=== PATIENT | male | born 2000 | race Caucasian/White ===

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

== ENCOUNTER 2023-07-19 08:24 | Emergency (ER) | payer SELFPAY ==
[2023-07-19] VITALS (8 sets, daily range): BP systolic 125–156; BP diastolic 79–108; PULSE 66–90; RESP 16–24; TEMP 36.7; O2SAT 93–97; BMI 30.7
[2023-07-19] MEDS: ondansetron 2 mg/ML SDV 2 mL 4 MG IVP (08:52)
--- NOTE | 2023-07-19 08:53 | W.ED.BACK ---
HPI - Back Pain/Injury General: Chief Complaint: Back Pain/Injury Stated Complaint: Back Pain Time Seen by Provider: 07/19/23 08:25 Source: patient Mode of arrival: ambulatory History of Present Illness: 23-year-old male presents emergency room with sudden onset of right flank and back pain. Radiating down into the groin. Patient has a history of autism pain is severe enough to cause him to vomit after he arrived. He denies any dysuria urgency or frequency or hematuria. Denies fever sweats or chills no known history of renal stones. Onset (ago): hour(s) Timing: constant Severity: severe Location: right flank Radiation: groin Exacerbating factors: none Relieving factors: none Associated symptoms: Reports nausea and vomiting; Deny abdominal pain, arthralgias, chills, change in bowel habits, difficulty walking, dysuria, fatigue, fecal incontinence, fever(s), hematuria, myalgias, numbness, syncope, tingling/numbness/burning, urinary frequency, urinary urgency or weakness Review of Systems Const: Denies: fever(s), chills or fatigue Card: Denies: syncope Resp: Denies: dyspnea GI: Reports: nausea and vomiting; Denies: abdominal pain, fecal incontinence or change in bowel habits : Reports: flank pain; Denies: dysuria, urinary frequency, urinary urgency or hematuria Musc: Denies: neck pain or back pain Skin/Breast: Denies: rash Neuro: Denies: difficulty walking [facility] ED PFSH: Medical History Attention-deficit hyperactivity disorder, combined type Autism Bipolar disorder, in full remission, most recent episode manic Physical Exam Const: GENERAL APPEARANCE: cooperative ORIENTATION/CONSCIOUSNESS: Yes awake, Yes oriented to person, Yes oriented to place and Yes oriented to time HENMT: COMMON NORMALS: normocephalic, atraumatic and hearing grossly normal bilaterally HEAD & SCALP: normocephalic and atraumatic Resp: COMMON NORMALS: normal respiratory effort, No retractions, No use of accessory muscles and clear to auscultation bilaterally AUSCULTATION: clear to auscultation bilaterally Cardio: COMMON NORMALS: regular rate, regular rhythm and No murmurs present (Cardio) RATE: regular rate RHYTHM: regular rhythm GI: COMMON NORMALS: Soft to palpation and No hepatosplenomegaly present AUSCULTATION: Yes normoactive bowel sounds PALPATION: Yes Soft to palpation, No Tenderness to palpation present (GI), No Guarding due to palpation present (GI) and Yes No hepatosplenomegaly present : BLADDER/KIDNEY EXAM: Yes CVA tenderness Back/Pelvis: GENERAL BACK: Yes CVA tenderness Extremity: COMMON NORMALS: normal to inspection, capillary refill normal, no clubbing, cyanosis or edema, no calf tenderness and no pedal edema Neuro: SENSORIUM/ORIENTATION: Yes oriented to person, Yes oriented to place and Yes oriented to time Skin: COMMON NORMALS: no rashes or lesions noted GENERAL SKIN EXAM: no rashes or lesions noted Course Vital Signs: Vital signs: Vital Signs Temperature 98.1 F 07/19/23 11:35 Pulse Rate 80 07/19/23 11:35 Respiratory Rate 24 H 07/19/23 11:35 Blood Pressure 132/83 07/19/23 11:35 Pulse Oximetry 97 07/19/23 11:35 Oxygen Delivery Me thod Room Air 07/19/23 11:09 MDM - Back Pain/Injury Medical Decision Making CT shows nephrolithiasis pain controlled with medications given. No sign of cystitis significant red blood cells but no white blood with no stone is [address] Pain is controlled at discharge patient home controlled strain urine start tamsulosin hydrocodone promethazine as needed follow-up with urology return if pain is uncontrolled Differential Diagnosis Likely lumbar radiculopathy and pyelonephritis Medical Records I reviewed the patient's medical records. Labs 07/19/23 09:08 07/19/23 09:08 Radiology Impressions Abdomen/Pelvis CT 07/19/23 08:58 IMPRESSION: 1. Mild RIGHT hydroureteronephrosis secondary to a 3 mm calcification in the mid ureter. Increased attenuation in the renal pelvis. Correlate for pyelonephritis. 2. No additional renal calcifications. Laboratory Results WBC 13.04 10^3/uL (3.29-11.43) H 07/19/23 09:08 RBC 6.22 10^6/uL (3.85-5.65) H 07/19/23 09:08 Hgb 17.60 g/dL (11.27-16.99) H 07/19/23 09:08 Hct 52.4 % (37-53) 07/19/23 09:08 MCV 84.2 fl (82-101) 07/19/23 09:08 MCH 28.3 pg (27-33) 07/19/23 09:08 MCHC 33.6 g/dL (30-55) 07/19/23 09:08 RDW 12.8 % (12.1-15.1) 07/19/23 09:08 Plt Count 313 10^3/cmm (157-399) 07/19/23 09:08 MPV 11.0 fL (7.4-10.4) H 07/19/23 09:08 Neut % (Auto) 72.7 % 07/19/23 09:08 Lymph % (Auto) 20.8 % 07/19/23 09:08 [place] % (Auto) 5.4 % 07/19/23 09:08 Eos % (Auto) 0.5 % 07/19/23 09:08 Baso % (Auto) 0.3 % 07/19/23 09:08 Neut # (Auto) 9.49 10^3/uL (1.8-7.7) H 07/19/23 09:08 Lymph # (Auto) 2.7 10^3/uL (0.8-4.8) 07/19/23 09:08 [place] # (Auto) 0.7 10^3/uL (0.2-0.9) 07/19/23 09:08 Eos # (Auto) 0.1 10^3/uL (0.0-0.8) 07/19/23 09:08 Baso # (Auto) 0.0 10^3/uL (0.0-0.1) 07/19/23 09:08 Nucleated RBC % (auto) 0 % 07/19/23 09:08 Nucleated RBCs # 0.0 /100WBC 07/19/23 09:08 Sodium 142 mmol/L (136-145) 07/19/23 09:08 Potassium 3.8 mmol/L (3.5-5.1) 07/19/23 09:08 Chloride 102 mmol/L (98-107) 07/19/23 09:08 Carbon Dioxide 24 mmol/L (22-29) 07/19/23 09:08 Anion Gap 19.8 (5-19) H 07/19/23 09:08 BUN 13 mg/dL (6-20) 07/19/23 09:08 Creatinine 1.0 mg/dL (0.7-1.2) 07/19/23 09:08 GFR Calculation 92.6 mL/min (90-130) 07/19/23 09:08 Glucose 116 mg/dL (65-115) H 07/19/23 09:08 Calculated Osmolality 295 mOsm/kg (285-295) 07/19/23 09:08 Calcium 9.8 mg/dL (8.5-10.5) 07/19/23 09:08 Total Bilirubin 0.3 mg/dL (0.15-1.2) 07/19/23 09:08 AST 26 U/L (0-40) 07/19/23 09:08 ALT 58 U/L (0-41) H 07/19/23 09:08 Alkaline Phosphatase 93 U/L (40-130) 07/19/23 09:08 Total Protein 8.0 g/dL (6.6-8.7) 07/19/23 09:08 Albumin 4.6 g/dL (3.5-5.2) 07/19/23 09:08 Globulin 3.4 g/dL (1.3-4.6) 07/19/23 09:08 Urine Color Dark yellow (Yellow) 07/19/23 09:41 Urine Appearance Sl hazy (CLEAR) A 07/19/23 09:41 Urine pH 5 (5-7) 07/19/23 09:41 Ur Specific [place] 1.030 (1.005-1.030) 07/19/23 09:41 Urine Protein 1+ (Negative) H 07/19/23 09:41 Urine Glucose (UA) Norm (Normal) 07/19/23 09:41 Urine Ketones 1+ (Negative) H 07/19/23 09:41 Urine Blood 3+ (Negative) H 07/19/23 09:41 Urine Nitrate Negative (Negative) 07/19/23 09:41 Urine Bilirubin 1+ (Negative) H 07/19/23 09:41 Urine Urobilinogen 1 mg/dL (Negative) H 07/19/23 09:41 Ur Leukocyte Esterase Negative (Negative) 07/19/23 09:41 Urine RBC 80-100 /hpf (0-2) H 07/19/23 09:41 Urine WBC 0-4 /hpf (0-5) H 07/19/23 09:41 Ur Squamous Epith Cells 0-4 /hpf (0-5) H 07/19/23 09:41 Calcium Oxalate Crystal 25-40 /hpf H 07/19/23 09:41 Amorphous Sediment Trace /hpf 07/19/23 09:41 Urine Bacteria Trace /hpf (NONE) 07/19/23 09:41 Urine Mucus 2+ /hpf 07/19/23 09:41 All radiology interpretation(s) finalized by discharge Discharge Plan Discharge Patient Disposition: Home Clinical Impression: Kidney stone on right side, Autism Condition: Stable Prescriptions: New hydrocodone-acetaminophen 5-325 mg tablet 1 tab PO Q6H PRN (Reason: pain) Qty: 20 0RF promethazine 25 mg tablet 25 mg PO Q6H PRN (Reason: nausea and vomiting) Qty: 20 0RF tamsulosin 0.4 mg capsule 0.4 mg PO DAILY Qty: 14 0RF No Action acetaminophen 500 mg Tablet 1,000 mg PO Q6H PRN (Reason: Pain) Discharge Orders: Discharge ED (Routine); Ordered 07/19/23 Ordered By: Darius Okeefe Discharge Diet: Usual diet Discharge Activity: Increase activity as tolerated Patient Instructions: Kidney Stones (ED), How to Strain Your Urine (ED), Opioid Safety, Pain Management Activity Restrictions/Additional Instructions: Thank you for choosing [facility] for your healthcare needs today. Please realize this is an emergency room and that we are providing you with a medical screening exam and this may not be complete and all inclusive of all the testing and or work up that you may need to determine your ailment or severity of your illness. It is very important that you follow up as instructed or that you return to the Emergency Department should you have concerns or if your condition changes or worsens in any way. You are seen today for flank pains labs and imaging show that you have a kidney stone on the right side. It is 3 mm it is likely to pass on its own it will cause significant discomfort until it does. Recommend that he take tamsulosin daily this will help increase the possibility of the stone passing on its own. Additionally you can use the hydrocodone for pain and the promethazine for nausea as needed. You should strain your urine to collect the stone. Case management make arrangements for you to follow-up with a urologist. If the pain is not controlled return to the emergency room. Coding Level of Care Code ED Hat And Cap Opener for Abbie Ashraf
[2023-07-19] MEDS: ketorolac 30 mg/mL INJ IVP (08:56)
[2023-07-19] MEDS: dexamethasone 10 mg/mL INJ IM (08:58)
--- NOTE | 2023-07-19 08:58 | CT_ITS ---
WS: [id number] CT ABDOMEN AND PELVIS NONCONTRAST HISTORY: flank pain TECHNIQUE: Imaging performed through the abdomen and pelvis. Coronal and sagittal reformats are submi tted. All CT scans at [facility] use at least one of these dose optimization techniques: auto mated exposure control; mA and/or kV adjustment per patient size (includes targeted exams where dose is matched to clinical indication); or iterative reconstruction. DLP: 1052.16 mGy.cm COMPARISON: None available. Lower thorax: Lung bases are clear. Visualized heart is normal. No hiatal hernia. Liver: Normal size liver. No mass or bile duct dilatation. Gallbladder: Normal gallbladder. No pericholecystic fluid or cholelithiasis. No gallbladder wall thic kening. Pancreas: Normal size and attenuation. Normal pancreatic duct. No pancreatitis or mass. Spleen: Normal. Adrenal glands: Normal. No mass. Right kidney: Mild RIGHT hydro ureter nephrosis secondary to a 3 mm calcification in the mid ureter a t the level of L3. No additional calcifications in the renal pelvis. There is increased attenuation w ithin the dilated renal pelvis suggesting there may be a superimposed infection. Left kidney: Normal size kidney with no mass or hydronephrosis. Aorta: Normal abdominal aorta, no aneurysm or atherosclerosis. No free fluid, intraperitoneal air or significant lymphadenopathy. GI tract: Normal noncontrast imaging of the stomach, small bowel and colon. No obstruction or wall th ickening. Normal appendix. Abdominal wall: Negative. No hernia. Pelvis: Nondistended bladder. No free fluid. No adenopathy. Osseous structures: Sclerotic foci in the proximal femurs. Consistent with bone islands. CT/CT kidney stone [id number] IMPRESSION: 1. Mild RIGHT hydroureteronephrosis secondary to a 3 mm calcification in the m id ureter. Increased attenuation in the renal pelvis. Correlate for pyelonephri tis. 2. No additional renal calcifications.
[2023-07-19] MEDS: orphenadrine 30 mg/mL Inj 2 mL 60 MG IM (09:00)
[2023-07-19] MEDS: morphine 4 mg/mL SDV 1 mL IVP ×2 (09:13→11:06)
[2023-07-19 10:06] LABS: Add Urine Microscopic? YES; Bilirubin Urine 1+ (Negative); Blood Urine 3+ (Negative); Glucose Urine UA Norm (Normal); Ketones Urine 1+ (Negative); Leukocyte Esterase Urine Negative (Negative); Nitrate Urine Negative (Negative); Protein Urine 1+ (Negative); Urine Appearance SL Hazy (CLEAR); Urine Color Dark Yellow (Yellow); Urobilinogen Urine 1 mg/dL (Negative); pH Urine 5 (5-7)
[2023-07-19 10:10] LABS: Basophils % 0.3 %; Eosinophils # 0.1 10^3/uL (0.0-0.8); Eosinophils % 0.5 %; Hematocrit 52.4 % (37-53); Lymphocytes # 2.7 10^3/uL (0.8-4.8); Lymphocytes % 20.8 %; Mean Corpuscular HGB Conc 33.6 g/dL (30-55); Mean Corpuscular Hemoglobin 28.3 pg (27-33); Mean Corpuscular Volume 84.2 fl (82-101); Monocytes # 0.7 10^3/uL (0.2-0.9); Monocytes % 5.4 %; Neutrophils # 9.49 10^3/uL (1.8-7.7); Neutrophils % 72.7 %; Nucleated Red Blood Cells % 0 %; Platelet Count 313 10^3/cmm (157-399); Red Blood Count 6.22 10^6/uL (3.85-5.65); Red Cell Distribution Width 12.8 % (12.1-15.1); White Blood Count 13.04 10^3/uL (3.29-11.43)
[2023-07-19 10:27] LABS: Add Urine Culture? Yes; Amorphous Sediment Urine TRACE /hpf; Bacteria Urine TRACE /hpf; Calcium Oxalate Crystals Urine 25-40 /hpf; Mucus Urine 2+ /hpf; RBC Urine 80-100 /hpf (0-2); Squamous Epithelial Cell Urine 0-4 /hpf (0-5); WBC Urine 0-4 /hpf (0-5)
[2023-07-19 10:28] LABS: Alanine Aminotransferase 58 U/L (0-41); Albumin Level 4.6 g/dL (3.5-5.2); Alkaline Phosphatase 93 U/L (40-130); Anion Gap 19.8 (5-19); Aspartate Amino Transferase 26 U/L (0-40); Blood Urea Nitrogen 13 mg/dL (6-20); Calcium 9.8 mg/dL (8.5-10.5); Carbon Dioxide 24 mmol/L (22-29); Chloride 102 mmol/L (98-107); Globulin 3.4 g/dL (1.3-4.6); Glomerular Filtration Rate 92.6 mL/min (90-130); Glucose 116 mg/dL (65-115); Osmolality Calculated 295 mOsm/kg (285-295); Potassium 3.8 mmol/L (3.5-5.1); Sodium 142 mmol/L (136-145); Total Bilirubin 0.3 mg/dL (0.15-1.2)
--- NOTE | 2023-07-20 17:05 | DCPLANNER ---
sent reports/labs/referral to mery malhotra
== END 2023-07-19 11:37 | disposition home or self-care (01) ==
PROVIDERS: Emergency Provider Family Medicine
DX: N13.2 Hydronephrosis with renal and ureteral calculous obstruction (principal); F84.0 Autistic disorder
CPT/HCPCS: 74176; 80053; 81001; 85025; 87086; 96374; 96375; 96376; 99285; J1100; J1885; J2270; J2360; J2405

== ENCOUNTER 2024-06-12 10:57 | Inpatient (IN) | payer SELFPAY ==
[2024-06-12 10:58] VITALS: BP 147/90; PULSE 106; RESP 18; TEMP 36.4; O2SAT 98; BMI 27.8
--- NOTE | 2024-06-12 11:01 | ED.C_ITS ---
HPI - Psych 2 General: Chief Complaint: Psychiatric Symptoms Stated Complaint: SI Time Seen by Provider: 06/12/24 10:58 Source: patient and EMS Mode of arrival: EMS Limitations: no limitations History of Present Illness: 24-year-old male who is here with EMS fo r suicidal ideations. He states he had increased depression and has been having suicidal thoughts for the last month he states that today he had a plan of getting a knife and cutting his throat. Denies any worse improving factors. Associated symptoms: Reports depression and suicidal ideation Related Data Home Medications ?Medication ?Instructions ?Recorded ?Confirmed acetaminophen 500 mg tablet 1,000 mg PO Q6H PRN Pain 0 07/19/23 06/12/24 Allergies Allergy/AdvReac Type Severity Reaction Status Date / Time No Known Allergies Allergy Verified 09/16/22 11:09 Review of Systems 2 Const: Denies: fever(s), chills, body aches or change in appetite ENMT: Denies: throat pain or dental pain Card: Denies: chest pain Resp: Denies: dyspnea GI: Denies: abdominal pain, nausea, vomiting or diarrhea Musc: Denies: neck pain or back pain Skin/Breast: Denies: rash Neuro: Denies: headache(s) Psych: Reports: depression and suicidal ideation PFSH ED 2 PFSH: Medical History Bipolar disorder, in full remission, most recent episode manic Attention-deficit hyperactivity disorder, combined type Autism Physical Exam 2 Const: COMMON NORMALS: no acute distress, patient oriented x3 and healthy appearing HENMT: COMMON NORMALS: normocephalic and atraumatic HEAD & SCALP: n ormocephalic and atraumatic Eye: COMMON NORMALS: conjunctivae normal CONJUNCTIVA: Yes conjunctivae normal Neck/C-Spine: COMMON NORMALS: full ROM and supple Chest: COMMONS NORMALS: normal inspection of the chest Resp: COMMON NORMALS: normal respiratory effort Cardio: COMMON NORMALS: regular rate RATE: regular rate Extremity: COMMON NORMALS: normal to inspection and full ROM Neuro: COMMON NORMALS: patient oriented x3, moves all extremities and no focal motor deficits Psych: COMMON NORMALS: mental status grossly normal, Normal thought process present and cooperative THOUGHT PROCESS: Normal thought process present T HOUGHT CONTENT: Yes Suicidality present Skin: COMMON NORMALS: no rashes or lesions noted and no wounds GENERAL SKIN EXAM: no rashes or lesions noted Course 2 Vital Signs: Vital signs: Vital Signs Temperature 97.5 F L 06/12/24 10:58 Pulse Rate 106 H 06/12/24 10:58 Respiratory Rate 18 06/12/24 10:58 Blood Pressure 147/90 06/12/24 10:58 Pulse Oximetry 98 06/12/24 10:58 Oxygen Delivery Me thod Room Air 06/12/24 10:58 MDM - Psych Medical Decision Making Patient presents for suicidal ideations he is medically cleared I spoke to psychiatrist will place on a 96-hour hold and admit Medical Records I reviewed the patient's medical records. Lab Data I reviewed the patient's lab results. 06/12/24 11:11 06/12/24 11:11 Laboratory Results WBC 9.19 10^3/uL (3.29-11.43) 06/12/24 11:11 RBC 5.93 10^6/uL (3.85-5.65) H 06/12/24 11:11 Hgb 17.10 g/dL (11.27-16.99) H 06/12/24 11:11 Hct 52.7 % (37-53) 06/12/24 11:11 MCV 88.9 fl (82-101) 06/12/24 11:11 MCH 28.8 pg (27-33) 06/12/24 11:11 MCHC 32.4 g/dL (30-55) 06/12/24 11:11 RDW 13.3 % (12.1-15.1) 06/12/24 11:11 Plt Count 255 10^3/cmm (157-399) 06/12/24 11:11 MPV 10.2 fL (7.4-10.4) 06/12/24 11:11 Neut % (Auto) 60.0 % 06/12/24 11:11 Lymph % (Auto) 33.7 % 06/12/24 11:11 [place] % (Auto) 4.7 % 06/12/24 11:11 Eos % (Auto) 0.7 % 06/12/24 11:11 Baso % (Auto) 0.4 % 06/12/24 11:11 Neut # (Auto) 5.51 10^3/uL (1.8-7.7) 06/12/24 11:11 Lymph # (Auto) 3.1 10^3/uL (0.8-4.8) 06/12/24 11:11 [place] # (Auto) 0.4 10^3/uL (0.2-0.9) 06/12/24 11:11 Eos # (Auto) 0.1 10^3/uL (0.0-0.8) 06/12/24 11:11 Baso # (Auto) 0.0 10^3/uL (0.0-0.1) 06/12/24 11:11 Nucleated RBC % (auto) 0 % 06/12/24 11:11 Nucleated RBCs # 0.0 /100WBC 06/12/24 11:11 Urine Opiates Screen Negative ng/mL (Negative) 06/12/24 11:18 Ur Barbiturates Screen Negative ng/mL (Negative) 06/12/24 11:18 Ur Phencyclidine Scrn Negative ng/mL (Negative) 06/12/24 11:18 Ur Amphetamines Screen Negative ng/mL (Negative) 06/12/24 11:18 U Benzodiazepines Scrn Negative ng/mL (Negative) 06/12/24 11:18 Urine Cocaine Screen Negative ng/mL (Negative) 06/12/24 11:18 U Marijuana (THC) Screen Negative ng/mL (Negative) 06/12/24 11:18 No radiology studies performed this visit Discharge Plan Discharge Patient Disposition: Admitted As Inpatient Clinical Impression: Suicidal ideation Condition: Stable Coding Level of Care Code ED Product Marketing Analyst for Abbie Ashraf
[2024-06-12 11:25] LABS: Basophils % 0.4 %; Eosinophils # 0.1 10^3/uL (0.0-0.8); Eosinophils % 0.7 %; Hematocrit 52.7 % (37-53); Lymphocytes # 3.1 10^3/uL (0.8-4.8); Lymphocytes % 33.7 %; Mean Corpuscular HGB Conc 32.4 g/dL (30-55); Mean Corpuscular Hemoglobin 28.8 pg (27-33); Mean Corpuscular Volume 88.9 fl (82-101); Mean Platelet Volume 10.2 fL (7.4-10.4); Monocytes # 0.4 10^3/uL (0.2-0.9); Monocytes % 4.7 %; Neutrophils # 5.51 10^3/uL (1.8-7.7); Nucleated Red Blood Cells % 0 %; Platelet Count 255 10^3/cmm (157-399); Red Blood Count 5.93 10^6/uL (3.85-5.65); Red Cell Distribution Width 13.3 % (12.1-15.1); White Blood Count 9.19 10^3/uL (3.29-11.43)
--- NOTE | 2024-06-12 11:26 | PC.NURSE ---
96 hr rights reviewed with patient @1125 with assistance of [facility] inshore undersea warfare officer Kwesi. All education reviewed. No verbalized questions or concerns for HS at this time. Patient copy was left with patient. Pt remains calm and cooperative at this time. Pt provided a soda. No further needs.
[2024-06-12 11:41] LABS: Amphetamines Screen Urine Negative (Negative); Barbiturates Screen Urine Negative (Negative); Benzodiazepines Screen Urine Negative (Negative); Cocaine Screen Urine Negative (Negative); Opiate Screen Urine Negative (Negative); PCP Screen Urine Negative (Negative); THC Screen Urine Negative (Negative)
[2024-06-12 11:46] LABS: Alanine Aminotransferase 42 U/L (0-41); Albumin Level 4.4 g/dL (3.5-5.2); Alkaline Phosphatase 87 U/L (40-130); Aspartate Amino Transferase 23 U/L (0-40); Blood Urea Nitrogen 16 mg/dL (6-20); Calcium 9.3 mg/dL (8.5-10.5); Carbon Dioxide 22 mmol/L (22-29); Chloride 104 mmol/L (98-107); Creatinine Clr Calc Pharmacy 131.2527; Globulin 3.4 g/dL (1.3-4.6); Glomerular Filtration Rate 91.8 mL/min (90-130); Glucose 129 mg/dL (65-115); Osmolality Calculated 291 mOsm/kg (285-295); Sodium 139 mmol/L (136-145); Total Bilirubin 0.4 mg/dL (0.15-1.2); Total Protein 7.8 g/dL (6.6-8.7)
[2024-06-12 11:52] LABS: Acetaminophen < 5.0 ug/mL (10-30); Alcohol Level < 10 mg/dL (0-10); Salicylate < 0.3 mg/dL (3-10)
[2024-06-12 12:08] VITALS: BP 125/88; PULSE 123; RESP 18; TEMP 37.6; O2SAT 99
[2024-06-12 14:00] VITALS: BP 106/63; PULSE 99; RESP 16; TEMP 36.6; O2SAT 95
[2024-06-12 20:05] VITALS: BP 112/66; PULSE 99; RESP 16; TEMP 36.8; O2SAT 94
[2024-06-13 06:00] VITALS: BP 117/78; PULSE 77; RESP 17; TEMP 36.7; O2SAT 98
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
[2024-06-13 14:00] VITALS: BP 112/68; PULSE 95; RESP 17; TEMP 36.6; O2SAT 95
[2024-06-13 20:10] VITALS: BP 122/76; PULSE 85; RESP 17; TEMP 36.7; O2SAT 98
[2024-06-13] MEDS: trazodone 50 mg Tablet PO (20:12)
[2024-06-14 06:00] VITALS: BP 118/63; PULSE 81; RESP 17; TEMP 36.4; O2SAT 98
[2024-06-14 12:35] VITALS: BP 138/65; PULSE 103; RESP 16; TEMP 37.2; O2SAT 96
--- NOTE | 2024-06-14 18:42 | P.NPUPN_ITS ---
Subjective NPU 2 Subjective: Patient presented today reporting that he is doing all right. We discussed the fact that he is on a 96-hour hold until his focus on discharge is fine but that he would be discharged when the situation and his mental status were appropriate. He continued to endorse a desire to avoid/not be in a situation where he is his mother's caregiver. He reports that is a significant source of anxiety and trepidation. Mental Status Exam 2 MSE Comments: This is an overweight but well developed white male in hospital scrubs with limited grooming and eye contact. No abnormal movements except for mild psychomotor retardation. ooperative with exam in moderate distress. Speech was slightly decreased rate and volume, mild tone and somewhat robotic. Mood described as I think it is had a bad day, affect is congruent and anxious. Thought process, linear. Thought content: patient denies suicidal or homicidal ideation, there were no delusions reported or noted, he denied auditory or visual hallucinations. Reports a long history of depression with low mood, feelings of helplessness, hopelessness, and worthlessness. Currently experiencing suicidal thoughts and intentions, with a history of attempts including trying to strangle himself and slit his wrists in middle school. Describes getting overwhelmed by things but not worrying excessively. Reports hearing his mother's voice when she is not present. Mood described as really good on the day of the encounter. Stressors include caring for his mother who is on hospice and has significant health issues. Attention and concentration are intact and memory appeared mostly reliable, but none were formally tested. He is alert and oriented x 3. Insight and judgment appeared limited and impulse control was impaired. Vitals/I&O/Wt Last Vital Signs Temp 97.8 F 06/14/24 20:39 Pulse 85 06/14/24 20:39 Resp 16 06/14/24 20:39 BP 121/77 06/14/24 20:39 Pulse Ox 96 06/14/24 20:39 O2 Del Method Room Air 06/14/24 20:39 Data NPU 06/12/24 11:11 06/12/24 11:11 A&P Assessment and plan (1) Attention-deficit hyperactivity disorder, combined type: (2) Bipolar disorder, in full remission, most recent episode manic: (3) Suicidal ideation: (4) Autism: (5) Depression: Plan This is a 24-year-old white male with a significant history of mental health issues who has not been actively in treatment for for 5 years and presents today with significant psychosocial stressors off of medication on a 96-hour hold. The patient is experiencing suicidal thoughts and intentions, with a history of depression dating back to middle school. There is a history of self-harm and previous suicide attempts, including attempts to strangle and cut wrists. The patient has been diagnosed with autism from a young age. There is a family history of mental health issues, including a mother with paranoid schizophrenia and bipolar disorder. The patient reports auditory hallucinations, such as hearing their mother's voice when she is not present. The patient is currently overwhelmed by the responsibility of caring for their mother, who is on hospice care, which exacerbates feelings of distress and hopelessness. 1. Consider restarting medication. But he continues to report a desire to not restart his medication. 2. Continue every 15 minute checks for safety. 3. Encourage individual, group and milieu therapies. 4. Obtain collateral information. 5. Evaluate against the backdrop of the 96-hour hold. PDMP PDMP Reviewed: Not Reviewed Involuntary Hold Information 2 Hold Status: Legal Status: 96 Hour Hold Date/Time Hold Expires: 06/18/2024 @ 1106 Attestations NPU 2 Medical Necessity Statement*: Inpatient hospitalization is medically necessary and the clinically appropriate intervention at this time. We will monitor/initiate medications and make changes as indicated. Likely length of stay 2-4 days. Coding Level of Care Code Acute Code for Chg Fwd Diagnoses Attention-deficit hyperactivity disorder, combined type F90.2 Bipolar disorder, in full remission, most recent episode manic F31.74 Suicidal ideation R45.851 Autism F84.0 Depression F32.A
[2024-06-14] MEDS: hyDROXYzine 25 mg Capsule 50 MG PO (19:46)
[2024-06-14] MEDS: trazodone 50 mg Tablet PO (19:46)
[2024-06-14 20:39] VITALS: BP 121/77; PULSE 85; RESP 16; TEMP 36.6; O2SAT 96
[2024-06-15 06:00] VITALS: BP 93/61; PULSE 88; RESP 18; TEMP 36.4; O2SAT 98
[2024-06-15 14:00] VITALS: BP 122/83; PULSE 100; RESP 16; TEMP 36.6; O2SAT 96
--- NOTE | 2024-06-15 19:18 | P.NPUPN_ITS ---
Subjective NPU 2 Subjective: Patient presented today reporting that he is doing fine. He reports that his understanding is that they have gotten everything together to be able to assist his mom through the weekend. He reports that he spoke with his aunt who is very supportive and endorsed that they will take him to [facility] for appointments as needed. We discussed the likelihood of discharge on Tuesday but that we would evaluate the situation further each day. He continued to deny desire to restart medication. Mental Status Exam 2 MSE Comments: This is an overweight but well developed white male in hospital scrubs with limited grooming and eye contact. No abnormal movements except for mild psychomotor retardation. ooperative with exam in moderate distress. Speech was slightly decreased rate and volume, mild tone and somewhat robotic. Mood described as I think it is had a bad day, affect is congruent and anxious. Thought process, linear. Thought content: patient denies suicidal or homicidal ideation, there were no delusions reported or noted, he denied auditory or visual hallucinations. Reports a long history of depression with low mood, feelings of helplessness, hopelessness, and worthlessness. Currently experiencing suicidal thoughts and intentions, with a history of attempts including trying to strangle himself and slit his wrists in middle school. Describes getting overwhelmed by things but not worrying excessively. Reports hearing his mother's voice when she is not present. Mood described as really good on the day of the encounter. Stressors include caring for his mother who is on hospice and has significant health issues. Attention and concentration are intact and memory appeared mostly reliable, but none were formally tested. He is alert and oriented x 3. Insight and judgment appeared limited and impulse control was impaired. Vitals/I&O/Wt Last Vital Signs Temp 97.8 F 06/15/24 14:00 Pulse 100 06/15/24 14:00 Resp 16 06/15/24 14:00 BP 122/83 06/15/24 14:00 Pulse Ox 96 06/15/24 14:00 O2 Del Method Room Air 06/15/24 14:00 06/15/24 06/15/24 06/15/24 06:59 14:59 22:59 Intake Total 960 / 960 480 / 1440 Balance 960 / 960 480 / 1440 Data NPU 06/12/24 11:11 06/12/24 11:11 A&P Assessment and plan (1) Attention-deficit hyperactivity disorder, combined type: (2) Bipolar disorder, in full remission, most recent episode manic: (3) Suicidal ideation: (4) Autism: (5) Depression: Plan This is a 24-year-old white male with a significant history of mental health issues who has not been actively in treatment for for 5 years and presents today with significant psychosocial stressors off of medication on a 96-hour hold. The patient is experiencing suicidal thoughts and intentions, with a history of depression dating back to middle school. There is a history of self-harm and previous suicide attempts, including attempts to strangle and cut wrists. The patient has been diagnosed with autism from a young age. There is a family history of mental health issues, including a mother with paranoid schizophrenia and bipolar disorder. The patient reports auditory hallucinations, such as hearing their mother's voice when she is not present. The patient is currently overwhelmed by the responsibility of caring for their mother, who is on hospice care, which exacerbates feelings of distress and hopelessness. 1. Consider restarting medication. But he continues to report a desire to not restart his medication. 2. Continue every 15 minute checks for safety. 3. Encourage individual, group and milieu therapies. 4. Obtain collateral information. 5. Evaluate against the backdrop of the 96-hour hold. PDMP PDMP Reviewed: Not Reviewed Involuntary Hold Information 2 Hold Status: Legal Status: 96 Hour Hold Date/Time Hold Expires: 06/18/2024 @ 1106 Attestations NPU 2 Medical Necessity Statement*: Inpatient hospitalization is medically necessary and the clinically appropriate intervention at this time. We will monitor/initiate medications and make changes as indicated. Likely length of stay 2-4 days. Coding Level of Care Code Acute Code for g Fwd Diagnoses Attention-deficit hyperactivity disorder, combined type F90.2 Bipolar disorder, in full remission, most recent episode manic F31.74 Suicidal ideation R45.851 Autism F84.0 Depression F32.A
[2024-06-15 20:33] VITALS: BP 113/71; PULSE 94; RESP 18; TEMP 36.4; O2SAT 97
[2024-06-16 06:00] VITALS: BP 108/74; PULSE 66; RESP 18; TEMP 36.3; O2SAT 98
[2024-06-16 14:00] VITALS: BP 114/75; PULSE 73; RESP 16; TEMP 36.6; O2SAT 99
--- NOTE | 2024-06-16 17:56 | P.NPUPN_ITS ---
Subjective NPU 2 Subjective: Patient presented today reporting that he is feeling good knowing that his mom is being taken care of. He reports that it has been a relief not to be in that situation and that he is starting to feel better. He was being more interactive and less isolative on the unit per staff reports and direct observation. He continues to report not wanting or thinking he needs to be on medication but understanding the importance of him being engaged in treatment and that he is open to giving that a try again. We discussed the likelihood of discharge on Tuesday if all things are in place. Mental Status Exam 2 MSE Comments: This is an overweight but well developed white male in hospital scrubs with limited grooming and eye contact. No abnormal movements except for mild psychomotor retardation. ooperative with exam in moderate distress. Speech was slightly decreased rate and volume, mild tone and somewhat robotic. Mood described as I think it is had a bad day, affect is congruent and anxious. Thought process, linear. Thought content: patient denies suicidal or homicidal ideation, there were no delusions reported or noted, he denied auditory or visual hallucinations. Reports a long history of depression with low mood, feelings of helplessness, hopelessness, and worthlessness. Currently experiencing suicidal thoughts and intentions, with a history of attempts including trying to strangle himself and slit his wrists in middle school. Describes getting overwhelmed by things but not worrying excessively. Reports hearing his mother's voice when she is not present. Mood described as really good on the day of the encounter. Stressors include caring for his mother who is on hospice and has significant health issues. Attention and concentration are intact and memory appeared mostly reliable, but none were formally tested. He is alert and oriented x 3. Insight and judgment appeared limited and impulse control was impaired. Vitals/I&O/Wt Last Vital Signs Temp 98.5 F 06/16/24 21:22 Pulse 80 06/16/24 21:22 Resp 18 06/16/24 21:22 BP 119/74 06/16/24 21:22 Pulse Ox 97 06/16/24 21:22 O2 Del Method Room Air 06/16/24 21:22 Data NPU 06/12/24 11:11 06/12/24 11:11 A&P Assessment and plan (1) Attention-deficit hyperactivity disorder, combined type: (2) Bipolar disorder, in full remission, most recent episode manic: (3) Suicidal ideation: (4) Autism: (5) Depression: Plan This is a 24-year-old white male with a significant history of mental health issues who has not been actively in treatment for for 5 years and presents today with significant psychosocial stressors off of medication on a 96-hour hold. The patient is experiencing suicidal thoughts and intentions, with a history of depression dating back to middle school. There is a history of self-harm and previous suicide attempts, including attempts to strangle and cut wrists. The patient has been diagnosed with autism from a young age. There is a family history of mental health issues, including a mother with paranoid schizophrenia and bipolar disorder. The patient reports auditory hallucinations, such as hearing their mother's voice when she is not present. The patient is currently overwhelmed by the responsibility of caring for their mother, who is on hospice care, which exacerbates feelings of distress and hopelessness. 1. Consider restarting medication. But he continues to report a desire to not restart his medication. 2. Continue every 15 minute checks for safety. 3. Encourage individual, group and milieu therapies. 4. Obtain collateral information. 5. Evaluate against the backdrop of the 96-hour hold. PDMP PDMP Reviewed: Not Reviewed Involuntary Hold Information 2 Hold Status: Legal Status: 96 Hour Hold Date/Time Hold Expires: 06/18/2024 @ 1106 Attestations NPU 2 Medical Necessity Statement*: Inpatient hospitalization is medically necessary and the clinically appropriate intervention at this time. We will monitor/initiate medications and make changes as indicated. Likely length of stay 2-3 days. Coding Level of Care Code Acute Code for [facility] Fwd Diagnoses Attention-deficit hyperactivity disorder, combined type F90.2 Bipolar disorder, in full remission, most recent episode manic F31.74 Suicidal ideation R45.851 Autism F84.0 Depression F32.A
[2024-06-16 21:22] VITALS: BP 119/74; PULSE 80; RESP 18; TEMP 36.9; O2SAT 97
[2024-06-17 06:00] VITALS: BP 115/76; PULSE 78; RESP 18; TEMP 36.8; O2SAT 96; BMI 32.8
--- NOTE | 2024-06-17 11:59 | P.NPUPN_ITS ---
Subjective NPU 2 Subjective: Patient presented today reporting that things are going well. He reports that he spoken to his aunt and he is feeling optimistic that options for his mother being managed by someone else are truly being explored and that he can consider some alternative possibilities. He continued to deny a desire to take any medication and denied any symptoms at this time. Mental Status Exam 2 MSE Comments: This is an overweight but well developed white male in hospital scrubs with limited grooming and eye contact. No abnormal movements except for mild psychomotor retardation. ooperative with exam in moderate distress. Speech was slightly decreased rate and volume, mild tone and somewhat robotic. Mood described as I think it is had a bad day, affect is congruent and anxious. Thought process, linear. Thought content: patient denies suicidal or homicidal ideation, there were no delusions reported or noted, he denied auditory or visual hallucinations. Reports a long history of depression with low mood, feelings of helplessness, hopelessness, and worthlessness. Currently experiencing suicidal thoughts and intentions, with a history of attempts including trying to strangle himself and slit his wrists in middle school. Describes getting overwhelmed by things but not worrying excessively. Reports hearing his mother's voice when she is not present. Mood described as really good on the day of the encounter. Stressors include caring for his mother who is on hospice and has significant health issues. Attention and concentration are intact and memory appeared mostly reliable, but none were formally tested. He is alert and oriented x 3. Insight and judgment appeared limited and impulse control was impaired. Vitals/I&O/Wt Last Vital Signs Temp 98.2 F 06/17/24 06:00 Pulse 78 06/17/24 06:00 Resp 18 06/17/24 06:00 BP 115/76 06/17/24 06:00 Pulse Ox 96 06/17/24 06:00 O2 Del Method Room Air 06/17/24 06:00 Weight last 48 hrs Weight 106.764 kg Data NPU 06/12/24 11:11 06/12/24 11:11 A&P Assessment and plan (1) Attention-deficit hyperactivity disorder, combined type: (2) Bipolar disorder, in full remission, most recent episode manic: (3) Suicidal ideation: (4) Autism: (5) Depression: Plan This is a 24-year-old white male with a significant history of mental health issues who has not been actively in treatment for for 5 years and presents today with significant psychosocial stressors off of medication on a 96-hour hold. The patient is experiencing suicidal thoughts and intentions, with a history of depression dating back to middle school. There is a history of self-harm and previous suicide attempts, including attempts to strangle and cut wrists. The patient has been diagnosed with autism from a young age. There is a family history of mental health issues, including a mother with paranoid schizophrenia and bipolar disorder. The patient reports auditory hallucinations, such as hearing their mother's voice when she is not present. The patient is currently overwhelmed by the responsibility of caring for their mother, who is on hospice care, which exacerbates feelings of distress and hopelessness. 1. Consider restarting medication. But he continues to report a desire to not restart his medication. 2. Continue every 15 minute checks for safety. 3. Encourage individual, group and milieu therapies. 4. Obtain collateral information. 5. Evaluate against the backdrop of the 96-hour hold. PDMP PDMP Reviewed: Not Reviewed Involuntary Hold Information 2 Hold Status: Legal Status: 96 Hour Hold Date/Time Hold Expires: 06/18/2024 @ 1106 Attestations NPU 2 Medical Necessity Statement*: Inpatient hospitalization is medically necessary and the clinically appropriate intervention at this time. We will monitor/initiate medications and make changes as indicated. Likely length of stay 1-2 days. Coding Level of Care Code Acute Code for [facility] Fwd Diagnoses Attention-deficit hyperactivity disorder, combined type F90.2 Bipolar disorder, in full remission, most recent episode manic F31.74 Suicidal ideation R45.851 Autism F84.0 Depression F32.A
[2024-06-17 14:00] VITALS: BP 131/79; PULSE 106; RESP 17; TEMP 37.1; O2SAT 97
[2024-06-17 19:39] VITALS: BP 116/81; PULSE 94; RESP 18; TEMP 36.6; O2SAT 97
[2024-06-18 06:00] VITALS: BP 118/78; PULSE 80; RESP 18; TEMP 36.7; O2SAT 99
--- NOTE | 2024-06-18 12:01 | PC.NURSE ---
PT 96 HOUR HOLD IS UP, PT DID SIGN IN AND CONSENT FOR TREATMENT.
[2024-06-18 14:00] VITALS: BP 135/74; PULSE 74; RESP 16; TEMP 37; O2SAT 98
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
[2024-06-18 15:00] VITALS: BP 135/74; PULSE 74; RESP 16; TEMP 37; O2SAT 98
== END 2024-06-18 16:17 | disposition home or self-care (01) | DRG 885 ==
LOC: ER 11:30 → NP 11:51
PROVIDERS: Admitting Provider Psychiatry & Neurology Psychiatry; Emergency Provider Emergency Medicine; Visit Provider Psychiatry & Neurology Psychiatry
DX: F31.74 Bipolar disorder, in full remission, most recent episode manic (principal); R45.851 Suicidal ideations; F90.2 Attention-deficit hyperactivity disorder, combined type; F84.0 Autistic disorder; Z91.51 Personal history of suicidal behavior; Z81.8 Family history of other mental and behavioral disorders; E66.3 Overweight; Z68.32 Body mass index [BMI] 32.0-32.9, adult
CPT/HCPCS: 80053; 80306; 80307; 85025; 97150; 97165; 99285; J9999